=== PATIENT | male | born 1990 | race Caucasian/White ===

== ENCOUNTER 2019-10-23 13:23 | Outpatient (CLI) | payer BC, SELFPAY ==
--- NOTE | 2019-10-23 | CT_ITS ---
WS: [id number] CT ABDOMEN AND PELVIS WITH CONTRAST HISTORY: ABDOMINAL PAIN TECHNIQUE: Imaging performed of the abdomen and pelvis with IV contrast. Single phase imaging of the abdomen. Coronal and sagittal reformats are submitted. All CT scans at [facility] use at least one of these dose optimization techniques: automated exposure control; mA and/or kV adjustment per patient size (includes targeted exams where dose is matched to clinical indication); or iterativ e reconstruction. IV CONTRAST: Omnipaque 300; 95 mL IV. Oral contrast: Yes. DLP: 1225.01 mGycm COMPARISON: None available. Lower thorax: Lung bases are clear. Heart is normal size. No hiatal hernia. Liver/biliary system: Normal size with no intrahepatic dilatation. Gallbladder: Normal. No gallstones or wall thickening. No pericholecystic fluid. Pancreas: Normal. Spleen: Normal. Adrenal glands: Normal. Right kidney: Normal. Left kidney: Normal. Aorta: Normal. Lymphadenopathy: None. Free fluid: None. GI tract: Unremarkable. Normal appendix. No obstruction or mucosal thickening. Abdominal wall: Unremarkable abdominal wall. No hernia. Pelvis: Normal. Bones: Unremarkable. CT/CT abdomen pelvis w con* [id number] IMPRESSION: 1. Normal CT abdomen and pelvis.
[2019-10-23] MEDS: iohexol 300 mg/mL 100 mL Btl IV (13:51)
== END 2019-10-23 13:24 | disposition home or self-care (01) ==
LOC: RADWPI 13:28
PROVIDERS: Visit Provider Nurse Practitioner Family
DX: R10.9 Unspecified abdominal pain (principal); R10.31 Right lower quadrant pain
CPT/HCPCS: 74177; Q9967

== ENCOUNTER 2019-10-24 14:06 | Emergency (ER) | payer BC, SELFPAY ==
[2019-10-24 14:13] VITALS: BP 139/82; PULSE 95; RESP 18; TEMP 36.9; O2SAT 95; BMI 31.6
[2019-10-24 16:14] LABS: Basophils # 0.1 10^3/uL (0.0-0.1); Basophils % 0.7 %; Eosinophils # 0.2 10^3/uL (0.0-0.8); Hematocrit 47.9 % (42.0-52.0); Hemoglobin 16.1 g/dL (11.7-16.6); Lymphocytes # 2.3 10^3/uL (0.8-4.8); Lymphocytes % 25.9 %; Mean Corpuscular HGB Conc 33.6 g/dL (30.0-36.0); Mean Corpuscular Hemoglobin 29.4 pg (28.0-34.0); Mean Corpuscular Volume 87.6 fL (80-94); Monocytes # 0.5 10^3/uL (0.2-0.9); Monocytes % 5.3 %; Neutrophils # 5.9 10^3/uL (1.8-7.7); Neutrophils % 65.7 %; Nucleated Red Blood Cells % 0 %; Platelet Count 231 10^3/cmm (130-400); Red Blood Count 5.47 10^6/uL (4.1-5.3); Red Cell Distribution Width 11.6 % (12.1-15.1)
[2019-10-24 16:29] LABS: Alanine Aminotransferase 32 U/L (0-41); Albumin Level 5.1 g/dL (3.5-5.2); Alkaline Phosphatase 72 IU/L (40-130); Anion Gap 15.7 (5-19); Aspartate Amino Transferase 25 U/L (0-40); Blood Urea Nitrogen 16 mg/dL (6-20); Calcium 10.4 mg/dL (8.5-10.5); Carbon Dioxide 28 mmol/L (22-29); Chloride 101 mmol/L (98-107); Globulin 2.4 g/dL (1.3-4.6); Glomerular Filtration Rate 87.7 mL/min (90-130); Glucose 90 mg/dL (65-115); Lipase 22 U/L (13-60); Osmolality Calculated 286 mOsm/kg (285-295); Potassium 4.7 mmol/L (3.5-5.1); Sodium 140 mmol/L (136-145); Total Bilirubin 0.7 mg/dL (0.15-1.2); Total Protein 7.5 g/dL (6.6-8.7)
--- NOTE | 2019-10-24 16:57 | ECG_ITS ---
[facility] ED Test Date: 2019-10-24 Pat Name: Misha Faye Department: Room: Gender: Male Division Service Manager: : 1990 Requested By: Laina Ye Order Number: [id number] Marie Anthony MD: Radha Nelson M.D. Measurements Intervals [place] Rate: 75 P: 46 [place]: 174 QRS: 21 QRSD: 96 T: 25 QT: 362 QTc: 407 Interpretive Statements SINUS RHYTHM POSSIBLE RIGHT VENTRICULAR CONDUCTION DELAY [RSR (QR) IN V1/V2] No previous ECG available for comparison Electronically Signed On 10-25-2019 13:47:30 CDT by Radha Nelson M.D. [email or web address]
--- NOTE | 2019-10-24 17:18 | W.ED.GENADLT ---
HPI - General Adult General: Chief complaint: Abdominal Pain Stated complaint: ABD PAIN Time Seen by Provider: 10/24/19 16:52 Source: patient and family Mode of arrival: ambulatory Limitations: no limitations History of Present Illness: HPI narrative: Jace is a 29-year-old male who comes in with multiple complaints. He states primarily he is here today because of his extreme fatigue. He states for the past 3 days he has felt just exhausted. He has had ongoing abdominal pain but this is been worked up on an outpatient basis and no cause can be found. No acute abnormality can be found. Patient denies any fevers, chills, sore throat, headache, chest pain, shortness of breath, back pain, extremity pain, skin rashes or otherwise. Patient is states he is so tired and fatigued he thought he should have more testing done. Associated symptoms: Reports malaise; Deny chest pain, confusion, diaphoresis, dyspnea, headache(s), nausea, rash, palpitations, syncope or vomiting Review of Systems Const: Reports: body aches, fatigue and malaise; Denies: fever(s), chills or diaphoresis Eyes: Denies: change in vision, blurry vision, blind spots, photophobia, eye discharge or eye redness ENMT: Denies: throat pain, odynophagia, hoarseness, swelling of lips/tongue, oral sores, ear or mastoid pain, ear discharge, change in hearing or nasal discharge Card: Denies: chest pain, palpitations, irregular heart rhythm, edema, lightheadedness, syncope, pre-syncope, dyspnea on exertion or orthopnea Resp: Denies: dyspnea, productive cough, non-productive cough, wheezing, hemoptysis or chest congestion GI: Denies: abdominal pain, nausea, vomiting, hematemesis, coffee ground emesis, heartburn, diarrhea, constipation, GI cramping, hematochezia or melena : Denies: flank pain, dysuria, urinary frequency, urinary urgency or hematuria Musc: Denies: neck pain, back pain, extremity pain, extremity swelling, joint pain, joint swelling, joint redness, joint warmth or joint stiffness Skin/Breast: Denies: rash, pruritus, erythema, skin tenderness or jaundice Neuro: Denies: headache(s), numbness in extremities, weakness in extremities, sensory changes, lack of coordination, difficulty walking, dizziness, vertigo, confusion, Slurred speech present or seizure-like activity Ever/Lymph: Denies: easy bruising, easy bleeding, petechiae, purpura or enlarged lymph nodes All/Imm: Denies: urticaria, throat swelling, tongue swelling, facial swelling or acute wheezing PFSH ED PFSH: Medical History No pertinent past medical history Surgical History No pertinent past surgical history Physical Exam Const: COMMON NORMALS: no acute distress, patient oriented x3, no limitations, healthy appearing and well nourished GENERAL APPEARANCE: cooperative, well kempt and well developed HENMT: COMMON NORMALS: normocephalic, atraumatic, external ears normal, EAC's normal and Normal external nose present HEAD & SCALP: normal to inspection, normocephalic and atraumatic FACE & SINUS: normal facial exam and face symmetric NOSE: Normal external nose present and Normal nares present EXTERNAL EAR: Yes external ears normal EXTERNAL AUDITORY CANAL: EAC's normal MOUTH: Normal oral and palatal mucosa present, lip normal and tongue normal Eye: COMMON NORMALS: Equal, round and reactive pupils present and conjunctivae normal GENERAL EYE: appearance normal, both eyes and all related structures ALIGNMENT: Yes alignment normal PERIORBITAL: periorbital findings normal EYELID: eyelids normal CONJUNCTIVA: Yes conjunctivae normal SCLERA: sclerae normal PUPIL: Yes Equal, round and reactive pupils present Neck/C-Spine: COMMON NORMALS: full ROM, no lymphadenopathy, supple, no meningeal signs and no JVD GENERAL: Yes normal visual inspection and Yes trachea midline Chest: COMMONS NORMALS: normal inspection of the chest and normal palpation of entire chest wall Resp: COMMON NORMALS: normal respiratory effort, No retractions and No use of accessory muscles EFFORT & INSPECTION: Yes able to speak in complete sentences and Yes symmetric chest movement AUSCULTATION: no crackles, no rales, no rhonchi and no wheezes Cardio: COMMON NORMALS: no JVD, regular rate, regular rhythm, S1 normal heart sound present and S2 normal heart sound present RATE: regular rate RHYTHM: regular rhythm HEART SOUNDS: S1 normal heart sound present, S2 normal heart sound present, no click, no gallops, no murmurs, no rubs and abnormal split S2 GI: COMMON NORMALS: Soft to palpation and No hepatosplenomegaly present PALPATION: Yes Soft to palpation, No Tenderness to palpation present (GI), No Guarding due to palpation present (GI), No Rigid due to palpation, Yes No hepatosplenomegaly present, No Hernia present, No Palpable mass present and No Pulsatile mass present : COMMON NORMALS: Yes no CVA tenderness BLADDER/KIDNEY EXAM: Yes no CVA tenderness Back/Pelvis: COMMON NORMALS: no CVA tenderness, thoracic and lumbar spine normal to inspection, no thoracic nor lumbar tenderness and thoraco-lumbar ROM normal Extremity: COMMON NORMALS: normal to inspection, full ROM, capillary refill normal, no joint enlargement, no clubbing, cyanosis or edema and no calf tenderness Neuro: COMMON NORMALS: patient oriented x3, CN's II-XII intact bilaterally, moves all extremities, no focal motor deficits and no sensory deficits noted MENINGEAL SIGNS: Yes no meningeal signs SPEECH: speech normal Psych: COMMON NORMALS: mental status grossly normal, Normal thought process present, cooperative, normal affect, speech normal and activity/motor behavior normal APPEARANCE: Yes well kempt SPEECH: Yes normal speech THOUGHT PROCESS: Normal thought process present Skin: COMMON NORMALS: no rashes or lesions noted, turgor normal, no jaundice, no petechiae and no mottling GENERAL SKIN EXAM: no rashes or lesions noted and turgor normal Course Vital Signs: Vital signs: Vital Signs Temperature 98.4 F 10/24/19 14:13 Pulse Rate 77 10/24/19 18:57 Respiratory Rate 14 10/24/19 18:57 Blood Pressure 156/95 10/24/19 18:57 Pulse Oximetry 98 10/24/19 18:57 MDM - General Adult MDM Narrative: Medical decision making narrative: Jace is a nice 29-year-old male who comes in with a complaint of several weeks worth of abdominal pain and then the past 3 days being extremely exhausted. His abdomen did not hurt today and his exam is benign. A CT scan from yesterday revealed no acute findings. Please see that in his chart for complete review. The patient's lab work is normal. His exam is nonfocal. It is possible he has irritable bowel or some other type of chronic bowel issue. I have encouraged him to follow-up with Dr. Miranda as he has been unable to get into see a doctor at [facility] and is only seen nurse practitioners. The patient will continue to try [facility] but also try to get in to see Dr. Miranda. An order was put in with case management to do so. Patient declines any further evaluation and care I do not believe an ultrasound or CAT scan today would be necessary. The patient's neurologic exam is normal and I find no other acute abnormalities. He does agree to return should his symptoms change or worsen but this time he is feeling better and wants to go home. Lab Data: Attestation: I reviewed the patient's lab results. Labs: Lab Results 10/24/19 10/24/19 10/24/19 Range/Units 16:00 16:00 16:00 WBC 9.0 (4.0-10.0) 10^3/ uL RBC 5.47 H (4.1-5.3) 10^6/u L Hgb 16.1 (11.7-16.6) g/dL Hct 47.9 (42.0-52.0) % MCV 87.6 (80-94) fL MCH 29.4 (28.0-34.0) pg MCHC 33.6 (30.0-36.0) g/dL RDW 11.6 L (12.1-15.1) % Plt Count 231 (130-400) 10^3/c mm MPV 10.0 (7.4-10.4) fL Neut % (Auto) 65.7 % Lymph % (Auto) 25.9 % [place] % (Auto) 5.3 % Eos % (Auto) 2.0 % Baso % (Auto) 0.7 % Neut # (Auto) 5.9 (1.8-7.7) 10^3/u L Lymph # (Auto) 2.3 (0.8-4.8) 10^3/u L [place] # (Auto) 0.5 (0.2-0.9) 10^3/u L Eos # (Auto) 0.2 (0.0-0.8) 10^3/u L Baso # (Auto) 0.1 (0.0-0.1) 10^3/u L Nucleated RBC % (a uto) 0 % Nucleated RBCs # 0.0 /100WBC Sodium 140 (136-145) mmol/L Potassium 4.7 (3.5-5.1) mmol/L Chloride 101 (98-107) mmol/L Carbon Dioxide 28 (22-29) mmol/L Anion Gap 15.7 (5-19) BUN 16 (6-20) mg/dL Creatinine 1.0 (0.7-1.2) mg/dL GFR Calculation 87.7 L (90-130) mL/min Glucose 90 (65-115) mg/dL Calculated Osmolal ity 286 (285-295) mOsm/k g Lactate (0.5-2.2) mmol/L Calcium 10.4 (8.5-10.5) mg/dL Total Bilirubin 0.7 (0.15-1.2) mg/dL AST 25 (0-40) U/L ALT 32 (0-41) U/L Alkaline Phosphata se 72 (40-130) IU/L Total Protein 7.5 (6.6-8.7) g/dL Albumin 5.1 (3.5-5.2) g/dL Globulin 2.4 (1.3-4.6) g/dL Lipase 22 (13-60) U/L TSH 1.19 (0.27-4.20) uIU/ mL Free T4 1.40 (0.82-1.77) ng/d L Urine Color (Yellow) Urine Appearance (CLEAR) Urine pH (5-7) Ur Specific Gravit y (1.005-1.030) Urine Protein (Negative) Urine Glucose (UA) (Normal) Urine Ketones (Negative) Urine Blood (Negative) Urine Nitrate (Negative) Urine Bilirubin (NEGATIVE) Urine Urobilinogen (Negative) mg/dL Ur Leukocyte Germaine ase (Negative) Urine Opiates Scre en (Negative) ng/mL Ur Barbiturates Sc reen (Negative) ng/mL Ur Phencyclidine S crn (Negative) ng/mL Ur Amphetamines Sc reen (Negative) ng/mL U Benzodiazepines Scrn (Negative) ng/mL Urine Cocaine Scre en (Negative) ng/mL U Marijuana (THC) Screen (Negative) ng/mL 10/24/19 10/24/19 10/24/19 Range/Units 17:22 18:00 18:00 WBC (4.0-10.0) 10^3/ uL RBC (4.1-5.3) 10^6/u L Hgb (11.7-16.6) g/dL Hct (42.0-52.0) % MCV (80-94) fL MCH (28.0-34.0) pg MCHC (30.0-36.0) g/dL RDW (12.1-15.1) % Plt Count (130-400) 10^3/c mm MPV (7.4-10.4) fL Neut % (Auto) % Lymph % (Auto) % [place] % (Auto) % Eos % (Auto) % Baso % (Auto) % Neut # (Auto) (1.8-7.7) 10^3/u L Lymph # (Auto) (0.8-4.8) 10^3/u L [place] # (Auto) (0.2-0.9) 10^3/u L Eos # (Auto) (0.0-0.8) 10^3/u L Baso # (Auto) (0.0-0.1) 10^3/u L Nucleated RBC % (a uto) % Nucleated RBCs # /100WBC Sodium (136-145) mmol/L Potassium (3.5-5.1) mmol/L Chloride (98-107) mmol/L Carbon Dioxide (22-29) mmol/L Anion Gap (5-19) BUN (6-20) mg/dL Creatinine (0.7-1.2) mg/dL GFR Calculation (90-130) mL/min Glucose (65-115) mg/dL Calculated Osmolal ity (285-295) mOsm/k g Lactate 0.7 (0.5-2.2) mmol/L Calcium (8.5-10.5) mg/dL Total Bilirubin (0.15-1.2) mg/dL AST (0-40) U/L ALT (0-41) U/L Alkaline Phosphata se (40-130) IU/L Total Protein (6.6-8.7) g/dL Albumin (3.5-5.2) g/dL Globulin (1.3-4.6) g/dL Lipase (13-60) U/L TSH (0.27-4.20) uIU/ mL Free T4 (0.82-1.77) ng/d L Urine Color Yellow (Yellow) Urine Appearance Clear (CLEAR) Urine pH 6 (5-7) Ur Specific Gravit y 1.020 (1.005-1.030) Urine Protein Neg (Negative) Urine Glucose (UA) Norm (Normal) Urine Ketones Negative (Negative) Urine Blood Neg (Negative) Urine Nitrate Negative (Negative) Urine Bilirubin Neg (NEGATIVE) Urine Urobilinogen Neg (Negative) mg/dL Ur Leukocyte Germaine ase Negative (Negative) Urine Opiates Scre en Negative (Negative) ng/mL Ur Barbiturates Sc reen Negative (Negative) ng/mL Ur Phencyclidine S crn Negative (Negative) ng/mL Ur Amphetamines Sc reen Negative (Negative) ng/mL U Benzodiazepines Scrn Negative (Negative) ng/mL Urine Cocaine Scre en Negative (Negative) ng/mL U Marijuana (THC) Screen Negative (Negative) ng/mL Imaging Data^: CXR: My impression: No acute cardiopulmonary findings. EKG Data^: EKG 1: Attestation: I personally reviewed and interpreted this EKG as follows: EKG interpretation date: 10/24/19 EKG interpretation time: 17:20 Interpretation: Normal sinus rhythm at 65 beats a minute, incomplete right bundle branch block, no acute ST-T wave changes. Discharge Plan Discharge Patient Disposition: Home, Self-Care Clinical Impression: Abdominal pain Qualifiers: Abdominal location: unspecified location Qualified Code(s): R10.9 - Unspecified abdominal pain Condition: Stable Discharge Orders: Discharge Order (Routine); Ordered 10/24/19 Ordered By: Laina Ibanez Referrals: Serafin Miranda MD [Physician] - 1-3 days Discharge Diet: Usual diet Discharge Activity: Increase activity as tolerated Patient Instructions: Abdominal Pain (ED) Activity Restrictions/Additional Instructions: Please return to the ER immediately for any of the signs or symptoms listed on your discharge instruction sheets, worsening/changing of your symptoms, you are not getting better as quickly as expected, or for ANY other cause or concerns. If your symptoms change or worsen in any way please return to the ER immediately for recheck. Case management will contact you with an appointment to follow-up with Dr. Miranda or another primary care physician to be seen as soon as possible. Discharge Date/Time: 10/24/19 19:06 Coding Level of Care Code ED Master Craftsman for Chg Fwd Exam Comprehensive
--- NOTE | 2019-10-24 17:27 | XRR_ITS ---
PROCEDURE INFORMATION: Exam: XR Chest, 1 View Exam date and time: 10/24/2019 5:58 PM Age: 29 years old Clinical indication: Cough and dyspnea; Additional info: Fatigue TECHNIQUE: Imaging protocol: XR of the chest Views: 1 view. COMPARISON: CR Chest 2 views* [id number] 01/24/2014 9:54 PM FINDINGS: Lungs: Unremarkable. No consolidation. Pleural space: Unremarkable. No pleural effusion. No pneumothorax. Heart/Mediastinum: Unremarkable. No cardiomegaly. Bones/joints: Unremarkable. XR/XR chest 1V portable [id number] IMPRESSION: No acute findings.
[2019-10-24 17:34] LABS: Thyroid Stimulating Hormone 1.19 uIU/mL (0.27-4.20)
[2019-10-24 17:36] VITALS: BP 131/84; BP 140/90; BP 148/94; PULSE 77; PULSE 85; PULSE 98
[2019-10-24 17:37] VITALS: BP 148/94; PULSE 98; RESP 14; O2SAT 98
[2019-10-24 17:46] LABS: Lactate (Lactic Acid level) 0.7 mmol/L (0.5-2.2)
[2019-10-24] MEDS: sodium chloride 0.9% 1,000 ML 999 ML IV (18:14)
[2019-10-24 18:21] LABS: Add Urine Microscopic? NO
[2019-10-24 18:30] LABS: Bilirubin Urine Neg (NEGATIVE); Blood Urine Neg (Negative); Glucose Urine UA Norm (Normal); Ketones Urine Negative (Negative); Leukocyte Esterase Urine Negative (Negative); Nitrate Urine Negative (Negative); Protein Urine Neg (Negative); Urine Appearance Clear (CLEAR); Urine Color Yellow (Yellow); Urobilinogen Urine Neg (Negative); pH Urine 6 (5-7)
[2019-10-24 18:33] LABS: Amphetamines Screen Urine Negative (Negative); Barbiturates Screen Urine Negative (Negative); Benzodiazepines Screen Urine Negative (Negative); Cocaine Screen Urine Negative (Negative); Opiate Screen Urine Negative (Negative); PCP Screen Urine Negative (Negative); THC Screen Urine Negative (Negative)
[2019-10-24 18:57] VITALS: BP 156/95; PULSE 77; RESP 14; O2SAT 98
--- NOTE | 2019-10-27 12:43 | DCPLANNER ---
advertising assistant manager had message to schedule a follow up appointment for patient with Dr. Miranda. advertising assistant manager called [facility], spoke with Anabel, a follow up appointment was scheduled for Monday, November 04, 2019 at 10:[address] Miranda. advertising assistant manager called patient, and left a voicemail for patient regarding appointment information, left a voicemail for patient to return family preservation caseworker phone call.
--- NOTE | 2019-11-03 15:00 | DCPLANNER ---
program manager slp called patient to give patient appointment information. program manager slp unable to speak with patient, a voicemail was left for patient with the appointment information.
--- NOTE | 2019-11-05 15:13 | DCPLANNER ---
Patient did attend appointment scheduled for 11.04.19 with .
== END 2019-10-24 19:06 | disposition home or self-care (01) ==
PROVIDERS: Family Medicine; Emergency Provider Emergency Medicine
DX: R10.9 Unspecified abdominal pain (principal)
CPT/HCPCS: 12345; 36415; 71045; 80053; 80306; 81003; 83605; 83690; 84439; 84443; 85025; 86618; 86666; 86757; 93005; 96360; 96361; 99283; 99284; J7030

== ENCOUNTER 2019-11-07 08:45 | Day surgery (SDC) | payer BC, SELFPAY ==
[2019-11-05 13:09] VITALS: BMI 31.6
[2019-11-07 09:06] VITALS: BP 148/94; PULSE 88; RESP 18; TEMP 36.3; O2SAT 99
[2019-11-07] MEDS: sodium chloride 0.9% 1,000 ML 30 ML IV (09:12)
--- NOTE | 2019-11-07 09:55 | ANES.PREANE2 ---
Pre-Anesthetic Assessment Pre-Anesthetic Assessment: Height/Weight: Height 1.85 m Weight 108.862 kg Temp Pulse Resp BP Pulse Ox 97.4 F L 88 18 148/94 99 11/07/19 09:06 11/07/19 09:06 11/07/19 09:06 11/07/19 09:06 11/07/19 09:06 Preop Diagnosis: gastric pain Proposed Procedure: Operation Date: 11/07/19 10:00 Proposed Procedures p EGD 93067 R63.4(Not Applicable) - Serafin Miranda MD Familial anesthetic complications: None Last intake: Intake Last Liquid Date 11/06/19 Last Liquid Time 18:00 Last Solid Date 11/06/19 Last Solid Time 18:00 Exam: Pre-Anes Outpt Exam: alert, oriented x 3, clear to auscultation bilaterally and regular rate & rhythm Airway: Cervical ROM: WNL MP: 2 Dentition: Full Anesthetic Plan: ASA status: 1 Anesthesia: MAC Risk of > 500 ml blood loss (7ml/kg in children): No Meds/Allergies Current Medications: Current Medications Generic Name Dose Route Start Last Admin Trade Name Freq PRN Reason Stop Dose Admin Sodium Chloride 1,000 mls @ 30 ml s/hr 11/07/19 09:00 11/07/19 09:12 Sodium Chloride 0.9% IV 30 mls/hr .Q24H SAMIRA Administration PFSH Anesthesia PFSH: Medical History (Updated 11/04/19 @ 11:31 by Serafin Miranda MD) No pertinent past medical history Surgical History (Updated 11/04/19 @ 10:47 by MAYKEL Gaona) No pertinent past surgical history Family History (Updated 11/04/19 @ 10:48 by MAYKEL Gaona) Other Heart disease Social History (Updated 11/04/19 @ 10:49 by MAYKEL Gaona) Smoking and tobacco status: current every day smoker Alcohol intake: former Adopted: No Marital status: Number of children: 3 service: No History of recent travel: No Current gender identity: Male Data Anesthesia Cardiac Studies: No Data to Display
--- NOTE | 2019-11-07 11:13 | W.PM.OPSUD ---
Surgery/Procedure H&P Update DATE OF PROCEDURE: November 07, 2019 DATE H&P PERFORMED: 11/04/19 PREOP DIAGNOSIS: gastric pain PLANNED PROCEDURE: Operation Date: 11/07/19 10:00 Proposed Procedures p EGD 28784 R63.4(Not Applicable) - Serafin Miranda MD
[2019-11-07 11:31] VITALS: BP 125/81; PULSE 78; RESP 16; TEMP 36.1; O2SAT 98
[2019-11-07 11:37] VITALS: BP 128/87; PULSE 88; RESP 18; O2SAT 99
[2019-11-10 05:59] LABS: H. Pylori / CLO Test Negative
== END 2019-11-07 12:00 | disposition home or self-care (01) ==
PROVIDERS: Visit Provider Internal Medicine
PROC: 0DJ08ZZ Inspection of Upper Intestinal Tract, Via Natural or Artificial Opening Endoscopic (ICD-10-PCS; CPT 43235; principal; 2019-11-07 10:00)
DX: R10.13 Epigastric pain (principal); K29.70 Gastritis, unspecified, without bleeding; F17.210 Nicotine dependence, cigarettes, uncomplicated
CPT/HCPCS: 12345; 43239; 87077; J2704; J7030

== ENCOUNTER 2022-02-13 08:56 | Day surgery (SDC) | payer BC, SELFPAY ==
[2022-02-09 12:17] VITALS: BMI 27.7
--- NOTE | 2022-02-13 07:47 | W.PM.OPSFHP ---
Same Day Surgery H&P Indication for Procedure/HPI DATE OF PROCEDURE: February 13, 2022 CHIEF COMPLAINT/INDICATIONFOR SURGICAL PROCEDURE: WL and abd pain PREOP DIAGNOSIS: gastric pain PLANNED PROCEDURE: Operation Date: 02/13/22 10:30 Proposed Procedures p Colonoscopy 15977,R63.4(Not Applicable) - Serafin Miranda MD Medications/Allergies* Allergies/Adverse Reactions Allergy/AdvReac Type Severity Reaction Status Date / Time No Known Allergies Allergy Verified 02/01/22 15:07 Pertinent History/Comorbid Conditions* Medical History (Updated 02/01/22 @ 16:17 by Serafin Miranda MD) No pertinent past medical history Surgical History (Updated 11/20/19 @ 15:28 by Serafin Miranda MD) No pertinent past surgical history Family History (Updated 11/04/19 @ 10:48 by MAYKEL Gaona) Heart disease Social History Smoking and tobacco status: current every day smoker Alcohol intake: former Adopted: No Marital status: Number of children: 3 service: No History of recent travel: No Current gender identity: Male Pertinent Exam Findings alert, oriented x 3, clear to auscultation bilaterally, regular rate & rhythm, operative site marked and procedure specific exam findings Recommendations Surgery/Procedure today Coding Level of Care Code Acute Nuclear Fuel Enrichment Technician for Ozzie Marin
[2022-02-13 09:29] VITALS: BP 138/89; PULSE 77; RESP 18; TEMP 36.5; O2SAT 96
[2022-02-13] MEDS: sodium chloride 0.9% 1,000 ML 30 ML IV (09:35)
--- NOTE | 2022-02-13 09:39 | ANES.PREANE2 ---
Pre-Anesthetic Assessment Height/Weight: Height 1.85 m Weight 95.254 kg Temp Pulse Resp BP Pulse Ox O2 Del Method 97.7 F 77 18 138/89 96 02/13/22 09:29 02/13/22 09:29 02/13/22 09:29 02/13/22 09:29 02/13/22 09:29 02/13/22 09:29 Preop Diagnosis: WL and abdominal pain Operation Date: 02/13/22 10:30 Proposed Procedures p Colonoscopy 47001,R63.4(Not Applicable) - Serafin Miranda MD Familial anesthetic complications: None Was Beta Gerard taken within 24 hours: N/A Was Clonidine taken within 24 hours: N/A Last intake: Intake Last Liquid Date 02/12/22 Last Liquid Time 22:00 Last Solid Date 02/11/22 Last Solid Time 19:00 Social Tobacco (Marijuana yesterday) and No alcohol 1 pack(s) per day Exam alert, oriented x 3, clear to auscultation bilaterally and regular rate & rhythm Airway Submandibular: within normal limits Cervical ROM: within normal limits Mallampati: Class III Dentition: full History/ROS No significant history except as noted and No significant complaints Pulmonary None reported CV/HEM None reported None reported Hepatic None reported GI Hiatal Hernia Metabolic None reported Musc/skel None reported Neuropsych None reported Anesthetic Plan ASA status: 1 Anesthesia: Anesthesia Evaluation, General and MAC Risk of > 500 ml blood loss (7ml/kg in children): No Medications/Allergies Home Medications Medication Instructions Recorded Confirmed Last Taken Type pantoprazole 40 mg tablet,delayed 40 mg PO DAILY #90 tabs 02/01/22 02/13/22 02/11/22 Rx release Allergies Allergy/AdvReac Type Severity Reaction Status Date / Time No Known Allergies Allergy Verified 02/01/22 15:07 Current Medications Generic Name Dose Route Start Last Admin Trade Name Freq PRN Reason Stop Dose Admin Sodium Chloride 1,000 mls @ 30 mls/hr 02/13/22 09:30 02/13/22 09:35 Sodium Chloride 0.9% IV 30 mls/hr .Q24H SAMIRA Administration PFSH Anesthesia Medical History No pertinent past medical history Surgical History No pertinent past surgical history Family History Other Heart disease Social History Smoking and tobacco status: current every day smoker Alcohol intake: former Adopted: No Marital status: Number of children: 3 service: No History of recent travel: No Current gender identity: Male Data Anesthesia Cardiac Studies: No Data to Display
[2022-02-13 10:33] VITALS: BP 103/69; PULSE 70; RESP 18; TEMP 36.6; O2SAT 99
[2022-02-13 10:43] VITALS: BP 113/73; PULSE 67; RESP 18; TEMP 36.6; O2SAT 99
--- NOTE | 2022-02-13 14:48 | ANE.PACU2 ---
Inpatient post-anesthesia follow up: Airway intact: Yes Vital signs: Temperature 97.8 F Pulse Rate 67 Respiratory Rate 18 Blood Pressure 113/73 Pulse Oximetry 99 Oxygen Delivery Me thod Room Air Oxygen Flow Rate Fraction of Inspir ed Oxygen Hydration adequate: Yes Nausea and vomiting: No Pain level: 1 Mental status: Baseline
== END 2022-02-13 11:00 | disposition home or self-care (01) ==
PROVIDERS: PCP Family Medicine; Visit Provider Internal Medicine
PROC: 0DJD8ZZ Inspection of Lower Intestinal Tract, Via Natural or Artificial Opening Endoscopic (ICD-10-PCS; CPT 45378; principal; 2022-02-13 10:30)
DX: R63.4 Abnormal weight loss (principal); Z68.27 Body mass index [BMI] 27.0-27.9, adult; F17.210 Nicotine dependence, cigarettes, uncomplicated
CPT/HCPCS: 45378; J2704; J7030

== ENCOUNTER 2022-03-09 14:20 | Outpatient (CLI) | payer BC, SELFPAY ==
[2022-03-09] MEDS: iohexol 350 mg/mL 500 mL Btl (per mL) IV (15:12)
[2022-03-09] MEDS: iohexol 350 mg/mL 500 mL Btl (per mL) PO (15:13)
--- NOTE | 2022-03-09 15:30 | CTR_ITS ---
PROCEDURE INFORMATION: Exam: CT Abdomen And Pelvis With Contrast Exam date and time: 03/09/2022 3:39 PM Age: 31 years old Clinical indication: Nausea and other: Weight loss; Generalized; Patient HX: Abdominal pain with abnormal weight loss 90lb in 1 year. ; Additional info: Wl and abdominal pain. TECHNIQUE: Imaging protocol: Computed tomography of the abdomen and pelvis with contrast. Radiation optimization: All CT scans at this facility use at least one of these dose optimization techniques: automated exposure control; mA and/or kV adjustment per patient size (includes targeted exams where dose is matched to clinical indication); or iterative reconstruction. Contrast material: OMNI 350; Contrast volume: 95 ml; Contrast route: INTRAVENOUS (IV); Other contrast: Oral, Omni; COMPARISON: CT abdomen pelvis w con* [id number] 10/23/2019 1:48 PM RADIATION DOSE METRICS: Total DLP (mGy-cm): 1047.43 FINDINGS: Liver: The liver is of normal size and echogenicity. No focal lesion. Gallbladder and bile ducts: Normal. No calcified stones. No ductal dilation. Pancreas: Normal. No ductal dilation. Spleen: Normal. No splenomegaly. Adrenal glands: Normal. No mass. Kidneys and ureters: Normal. No hydronephrosis. Stomach and bowel: Unremarkable. No obstruction. No mucosal thickening. Appendix: The appendix is visualized and is normal. Intraperitoneal space: Unremarkable. No free air. No significant fluid collection. 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 The splenic vein is prominent with possible mild perigastric collaterals. Lymph nodes: Unremarkable. No enlarged lymph nodes. Urinary bladder: Unremarkable as visualized. Reproductive: Unremarkable as visualized. Bones/joints: Unremarkable. No acute fracture. Soft tissues: Unremarkable. CT/CT abdomen pelvis w con* [id number] IMPRESSION: 1. No acute findings. 2. Mildly enlarged portal and splenic veins. Portal venous hypertension related to liver disease is not excluded. Clinical correlation recommended.
== END 2022-03-09 14:21 | disposition home or self-care (01) ==
PROVIDERS: PCP Family Medicine; Visit Provider Internal Medicine
DX: R63.4 Abnormal weight loss (principal); I87.8 Other specified disorders of veins
CPT/HCPCS: 74177